=== PATIENT | female | born 1975 | race Caucasian/White ===

== ENCOUNTER 2018-09-02 12:24 | Emergency (ER) | payer OTHER ==
[~2018-09-02] VITALS: Ht 167.6 cm; Wt 68.1 kg
[~2018-09-02 12:24] MED LIST: ALPR-475 PO; CARI350T PO; HYDR1TAB13 PO; MELO15TA24 PO; ZOLP10TA PO
[2018-09-02 13:27] LABS: BASOPHILS # (AUTO) 0.08 x10^3/uL (0-0.1); BASOPHILS % (AUTO) 1 % (0-1); EOSINOPHILS # (AUTO) 0.03 x10^3/uL (0-0.4); EOSINOPHILS % (AUTO) 1 % (1-7); LYMPHOCYTES # (AUTO) 1.15 x10^3/uL (1-3.4); LYMPHOCYTES % (AUTO) 18 % (22-44); MD NO; MEAN CORPUSCULAR HEMOGLOBIN 32.2 pg (27.0-34.8); MEAN CORPUSCULAR HGB CONC 34.3 g/dL (32.4-35.8); MEAN CORPUSCULAR VOLUME 93.9 fL (80-100); MEAN PLATELET VOLUME 7.4 fL (7.4-10.4); MONOCYTES # (AUTO) 0.33 x10^3/uL (0.2-0.8); MONOCYTES % (AUTO) 5 % (2-9); NEUTROPHILS % (AUTO) 75 % (42-75); PLATELET COUNT 313 x10^3/uL (130-400); RED BLOOD COUNT 4.31 x10^6/uL (3.82-5.3); RED CELL DISTRIBUTION WIDTH 12.8 % (9.6-15.2)
[2018-09-02 13:35] LABS: ALBUMIN 3.5 g/dL (3.4-5.0); ANION GAP 5 mmol/L (5-15); CALCIUM 8.7 mg/dL (8.5-10.1); CHLORIDE 110 mmol/L (98-107)
[2018-09-02 13:42] LABS: ALANINE AMINOTRANSFERASE 20 U/L (12-78); ALKALINE PHOSPHATASE 144 U/L (45-117); BILIRUBIN,TOTAL 0.5 mg/dL (0.2-1.0); CREATININE 0.92 mg/dL (0.55-1.02)
[2018-09-02 13:52] LABS: INTERNATIONAL NORMALIZED RATIO 0.91 (0.93-1.1); PROTHROMBIN TIME 9.6 Seconds (9.6-11.5)
--- NOTE | 2018-09-02 15:14 | NUR ---
Assumed care of patient. Upon wakening on Sunday, patient had C/O tingling and swelling in RLE. C/O migraine. Patient reports near syncope while in shower on Sunday, but she caught herself before falling to the ground. 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 Will continue to monitor.
--- NOTE | 2018-09-02 15:49 | NUR ---
Patient to MRI.
--- NOTE | 2018-09-02 16:45 | NUR ---
Back from MRI. No needs.
--- NOTE | 2018-09-02 17:43 | NUR ---
Resting in [facility]. No needs.
--- NOTE | 2018-09-02 19:00 | NUR ---
Patient/Caregiver given discharge instructions and they have confirmed that they understand the instructions. Patient ambulatory with steady gait.
[2018-09-02 19:01] VITALS: BP 131/86
== END 2018-09-02 19:02 | disposition home or self-care (01) ==
LOC: ED 17:38
DX: M54.16 Radiculopathy, lumbar region (principal); R53.1 Weakness
CPT/HCPCS: 36415; 70450; 72148; 80053; 84703; 85025; 85610; 85730; 99284

== ENCOUNTER 2019-11-13 16:45 | Emergency (ER) | payer OTHER ==
[~2019-11-13] VITALS: Ht 167.6 cm; Wt 68.3 kg
[~2019-11-13 16:45] MED LIST changes: -ALPR-475 PO; +ALPR0.5T7 PO
[2019-11-13] MEDS ORDERED: PROPARACAINE OPHTH 0.5%, 15ML ONE (17:03)
[2019-11-13] MEDS ORDERED: FLUORESCEIN OPHTHALMIC 1 MG STRIP ONE (17:03)
[2019-11-13 18:25] VITALS: BP 128/98
== END 2019-11-13 18:27 | disposition home or self-care (01) ==
LOC: ED 17:12
DX: S05.02XA Injury of conjunctiva and corneal abrasion without foreign body, left eye, initial encounter (principal); W45.8XXA Other foreign body or object entering through skin, initial encounter; Y93.89 Activity, other specified; Y92.89 Other specified places as the place of occurrence of the external cause; Y99.8 Other external cause status
CPT/HCPCS: 99283

== ENCOUNTER 2020-11-05 01:36 | Emergency (ER) | payer OTHER ==
[~2020-11-05] VITALS: Ht 167.6 cm; Wt 72.6 kg
--- NOTE | 2020-11-05 02:30 | NUR ---
R FOOT EDEMA X 1.5WEEKS AGO, WORSE LAST 2 DAYS. WOKE UP C L FOOT EDEMA. SUDDEN ONSET OF SOB & CHEST PRESSURE. FEELING "OUT OF BREATH". 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
--- NOTE | 2020-11-05 03:00 | NUR ---
CXR AT BEDSIDE US AT BEDSIDE REPORT TO RODY MIRANDA
--- NOTE | 2020-11-05 03:03 | NUR ---
report from jaden rn, pt care transferred at this time. pt nad, no change in condition. Patient is resting comfortably in bed. Bed in lowest, rails engaged, call light on lap. TM.
[2020-11-05 03:35] LABS: BASOPHILS % (AUTO) 1 % (0-1); EOSINOPHILS % (AUTO) 2 % (1-7); LYMPHOCYTES % (AUTO) 29 % (22-44); MEAN CORPUSCULAR HEMOGLOBIN 32.1 pg (27.0-34.8); MEAN CORPUSCULAR HGB CONC 34.1 g/dL (32.4-35.8); MEAN PLATELET VOLUME 7.6 fL (7.4-10.4); MONOCYTES % (AUTO) 11 % (2-9); NEUTROPHILS % (AUTO) 58 % (42-75); PLATELET COUNT 270 x10^3/uL (130-400); RED BLOOD COUNT 4.03 x10^6/uL (3.82-5.3); RED CELL DISTRIBUTION WIDTH 13.4 % (9.6-15.2)
[2020-11-05 03:38] LABS: ALANINE AMINOTRANSFERASE 28 U/L (12-78); ALBUMIN 3.4 g/dL (3.4-5.0); ANION GAP 5 mmol/L (5-15); CHLORIDE 109 mmol/L (98-107)
[2020-11-05 03:43] LABS: ALKALINE PHOSPHATASE 118 U/L (45-117); BILIRUBIN,TOTAL 0.2 mg/dL (0.2-1.0); CREATININE 0.85 mg/dL (0.55-1.02); TOTAL PROTEIN 6.9 g/dL (6.4-8.2); TROPONIN I < 0.015 ng/mL (0.000-0.045)
--- NOTE | 2020-11-05 04:04 | NUR ---
pt nad, Patient is resting comfortably in bed. Bed in lowest, rails engaged, call light on lap. Vital Signs within normal limits. concerned regarding bump on scalp, erp aware, awaiting new orders if deemed necessary. WCTM.
[2020-11-05 04:42] VITALS: BP 112/74
--- NOTE | 2020-11-05 04:43 | NUR ---
Patient given discharge instructions and they have confirmed that they understand the instructions. Patient ambulatory with steady gait. NAD, all questions answered appropriately, denies additional needs at this time. No personal belongings left in room after discharge.
== END 2020-11-05 04:49 | disposition home or self-care (01) ==
LOC: ED 03:35
DX: R60.0 Localized edema (principal); R07.89 Other chest pain; R06.00 Dyspnea, unspecified; M79.671 Pain in right foot; R06.02 Shortness of breath; R94.31 Abnormal electrocardiogram [ECG] [EKG]
CPT/HCPCS: 36415; 71045; 80053; 83880; 84484; 84703; 85025; 93005; 99285